=== PATIENT | male | born 1955 | race Caucasian/White ===

== ENCOUNTER 2020-10-12 07:38 | Outpatient (REF) | payer OTHER, SELFPAY ==
--- NOTE | ~2020-10-12 | XR_ITS ---
EXAMINATION: XR BILATERAL KNEES STANDING XR RIGHT KNEE 2 VIEWS CLINICAL INFORMATION: Knee pain. COMPARISON: None. TECHNIQUE: AP bilateral knees standing. Right knee 2 views. FINDINGS: AP Bilateral Knee: There is a mild reduction in the medial and lateral compartment joint spaces both knees. No bony erosive changes. No fracture. No loose bodies. The soft tissues are normal. No abnormal joint effusion seen. There is mild periarticular spurring. No abnormal joint effusion seen. Right Knee: There is mild loss of patellofemoral compartment joint space with inferior spurring. No abnormal joint effusion. No loose bodies or bony erosive changes. XR/XR knee standing BI IMPRESSION: Degenerative changes throughout the right knee with periarticular spurring. No loose bodies, bony erosive changes or joint effusion. Degenerative changes also visualized in the medial and lateral compartment of left knee.
--- NOTE | ~2020-10-12 | XR_ITS ---
EXAMINATION: XR BILATERAL KNEES STANDING XR RIGHT KNEE 2 VIEWS CLINICAL INFORMATION: Knee pain. COMPARISON: None. TECHNIQUE: AP bilateral knees standing. Right knee 2 views. FINDINGS: AP Bilateral Knee: There is a mild reduction in the medial and lateral compartment joint spaces both knees. No bony erosive changes. No fracture. No loose bodies. The soft tissues are normal. No abnormal joint effusion seen. There is mild periarticular spurring. No abnormal joint effusion seen. Right Knee: There is mild loss of patellofemoral compartment joint space with inferior spurring. No abnormal joint effusion. No loose bodies or bony erosive changes. XR/XR knee RT 2V IMPRESSION: Degenerative changes throughout the right knee with periarticular spurring. No loose bodies, bony erosive changes or joint effusion. Degenerative changes also visualized in the medial and lateral compartment of left knee.
== END 2020-10-12 07:39 | disposition home or self-care (01) ==
LOC: HO.HOSX 07:38
PROVIDERS: Visit Provider Orthopaedic Surgery
DX: S83.231A Complex tear of medial meniscus, current injury, right knee, initial encounter (principal)
CPT/HCPCS: 73560; 73565; 99202

== ENCOUNTER → 2020-12-31 08:54 | Outpatient (BNVA) | payer OTHER, SELFPAY | PROVIDERS: Visit Provider Orthopaedic Surgery | DX: S83.2 Tear of meniscus, current injury (principal); M17.11 Unilateral primary osteoarthritis, right knee | CPT/HCPCS: 99212 ==

== ENCOUNTER 2024-04-18 08:41 | Outpatient (AMB) | payer MEDICARE, SELFPAY ==
--- NOTE | 2024-04-18 08:51 | MHC.OFFVIS ---
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 He was previously seen in 2020 for the right knee, complex medial meniscus tear. Patient reports that he has had swelling in the left knee ongoing for about 1 month now.He does not recall any injury. He did have an ultrasound done of the left leg to rule out DVT - US was negative. He reports that both of his knees are painful, the right knee he is wearing a brace due to feeling unstable with cracking and popping. And the left knee is feeling painful and swollen. He is taking Advil PRN but he tries to avoid this. 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 He was previously seen in 2020 for the right knee, complex medial meniscus tear. Patient reports that he has had swelling in the left knee ongoing for about 1 month now.He does not recall any injury. He did have an ultrasound done of the left leg to rule out DVT - US was negative. He reports that both of his knees are painful, the right knee he is wearing a brace due to feeling unstable with cracking and popping. And the left knee is feeling painful and swollen. He is taking Advil PRN but he tries to avoid this. 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 Mild flexion contracture right greater than left. Tenderness to palpation medial compartment and patellofemoral joint. Mild Bernardo's cyst bilaterally Office Procedures Joint Injection/Aspiration Joint Injection/Aspiration Details: Injected 1 mL of Decadron and 3 mL 1% lidocaine and 3 mL of 0.25% Marcaine. Site was prepped using aseptic technique. Patient tolerated the procedure well. Primary Site: right knee Secondary Site: left knee Approach Used: anterolateral Coding 48675 - Large joint 52513 - Glenohumeral/Tronchanteric Bursa/Intraarticular Procedure code (CPT) selection complete Assessment & Plan Assessment & Plan (1) Bilateral primary osteoarthritis of knee: Code(s): M17.0 - Bilateral primary osteoarthritis of knee Category: Medical Plan: Tawanda is a 69-year-old gentleman bilateral knee osteoarthritis. He also has unilateral leg swelling. His leg swelling is being worked up by his primary care doctor. As for his arthritis it is moderately bothersome with swelling and stiffness. I injected both knees. I recommend continued activity as tolerated. He may follow up p.r.n.. (2) Diabetes: Code(s): E11.9 - Type 2 diabetes mellitus without complications Category: Medical Plan: I informed him of the hyperglycemic effects of steroids. Coding Level of Care Code New Pt Level 4 (76777) Diagnoses Bilateral primary osteoarthritis of knee M17.0 Diabetes E11.9 CPT Codes Coding - 59330 Large joint: 14601 - Large joint ([id number]) Coding - Joint 7: 75981 - Glenohumeral/Tronchanteric Bursa/Intraarticular ([id number])
[2024-04-18 08:52] VITALS: BMI 38.9
== END 2024-04-18 09:48 | disposition home or self-care (01) ==
PROVIDERS: Visit Provider Orthopaedic Surgery
DX: M17.0 Bilateral primary osteoarthritis of knee (principal); E11.9 Type 2 diabetes mellitus without complications
CPT/HCPCS: 20610; 99204

== ENCOUNTER → 2024-04-18 08:41 | Outpatient (BNVA) | payer MEDICARE, SELFPAY | PROVIDERS: Visit Provider Orthopaedic Surgery | DX: M17.0 Bilateral primary osteoarthritis of knee (principal); E11.9 Type 2 diabetes mellitus without complications | CPT/HCPCS: 20610; 99202; J0665; J1100 ==

== ENCOUNTER 2025-05-08 10:15 | Outpatient (AMB) | payer MEDICARE, SELFPAY ==
--- NOTE | 2025-05-08 11:26 | MHC.OFFVIS ---
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 At today's visit he states that for the past ten years he has had lower back pain that does radiate into the left buttocks. He states that the back pain is very sporadic and when the pain does flair up he states the pain brings me to my knees . Patient has tried physical therapy and at home exercises with no relief. He states he has not had injections before for the lower back. He reports no numbness, tingling and the pain does not radiate down the legs. He added that he did have a X ray but never had an MRI for the Lower back. Allergies No Known Allergies Allergy (Verified 05/08/25 11:31) Medication List - Last Reconciled 05/08/25 by Cierra Jackson MD aspirin (Adult Aspirin Regimen) 81 mg PO DAILY insulin aspart U-100 (Novolog FlexPen U-100 Insulin aspart) 20 units subcut BID insulin glargine (Basaglar KwikPen U-100 Insulin) 10 units subcut BID metformin 1,000 mg PO DAILY simvastatin mg PO HPI Comments Details: Saw Dr. Meyers today for knee pain. No recent lumbar imaging for me to review. On/off pain. Whenever he overexerts. Usually left side, like a knot, could last weeks-months. Last episode in December. No pain now. On munjaro which helped with DM and weight, as well as knee swelling. Has done PT before. 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 Patient was appropriately conversant and oriented. Good historian. MSK: No specific abnormalities found on inspection of the spine and all extremities. No pain with palpation over the lumbar area. Lumbar ROM was full. Bilateral hip, knee and ankle ROM WNL. No ligamentous laxity or crepitance. No increased effusion. Strength is 5/5 in all muscle groups tested. No increased tone noted. Neurological: Neurologic examination of the upper and lower extremities was nonfocal with intact sensation, muscle stretch reflexes and without focal motor deficits . Astudillo?s negative bilaterally. Babinski was down going bilaterally. Clonus was negative. Gait is non-antalgic without loss of balance. Vital Signs: BMI result Body Mass Index 37.1 Results Reviewed Results Reviewed: I reviewed records from the following: Ortho Assessment & Plan Assessment & Plan (1) Sacroiliac joint dysfunction of left side: Code(s): M53.3 - Sacrococcygeal disorders, not elsewhere classified Category: Medical Plan Chronic recurrent pain in the SI joint area, left side. Last episode was last December. No pain today. He has done therapy and imaging in the past. The next time he has an episode, he will call our office to get an urgent appointment with me. Assessment and plan discussed with patient, and patient was agreeable. All questions were answered thoroughly. Cierra Jackson MD, [place] Board Certified, [place] [employer] and [employer] (ABPMR) Board Certified, [place] [employer] (ABEM) Coding Level of Care Code New Pt Level 3 (83860) Diagnoses Sacroiliac joint dysfunction of left side M53.3
[2025-05-08 11:31] VITALS: BMI 37.1
== END 2025-05-08 11:42 | disposition home or self-care (01) ==
LOC: HO.HOS 10:16
PROVIDERS: Visit Provider Physical Medicine & Rehabilitation
DX: M53.3 Sacrococcygeal disorders, not elsewhere classified (principal)
CPT/HCPCS: 99203

== ENCOUNTER 2025-05-08 10:15 | Outpatient (AMB) | payer MEDICARE, SELFPAY ==
--- NOTE | 2025-05-08 10:22 | A.OFFVIS_ITS ---
Intake Visit Reasons: OV-B/L Knee pain /OA L>R Intake Note: Tawanda is a 70 year old male who presents today for a follow up of his Bilateral Knee OA. He was last seen 04/18/24 where both of his knees were injected. Diabetic. Allergies No Known Allergies Allergy (Verified 05/08/25 11:31) HPI HPI OV-B/L Knee pain /OA L>R: Details: Tawanda comes in today feeling well with no complaints. He describes occasional clicking of the right knee with no pain. He feels better than he did prior. He denies pain. 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 Continue activity as tolerated. Coding Level of Care Code Est Pt Level 3 (84559) Diagnoses Bilateral primary osteoarthritis of knee M17.0
== END 2025-05-08 10:32 | disposition home or self-care (01) ==
LOC: HO.HOS 10:16
PROVIDERS: Visit Provider Orthopaedic Surgery
DX: M17.0 Bilateral primary osteoarthritis of knee (principal)
CPT/HCPCS: 99213

== ENCOUNTER → 2025-05-08 10:15 | Outpatient (BNVA) | payer MEDICARE, SELFPAY | PROVIDERS: Visit Provider Physical Medicine & Rehabilitation | DX: M53.3 Sacrococcygeal disorders, not elsewhere classified (principal); G89.29 Other chronic pain; M17.0 Bilateral primary osteoarthritis of knee; M25.562 Pain in left knee; M25.561 Pain in right knee; E11.9 Type 2 diabetes mellitus without complications; Z79.4 Long term (current) use of insulin | CPT/HCPCS: 99202; 99212 ==